=== PATIENT | male | born 1955 | race Hispanic/Latino ===

== ENCOUNTER 2025-02-18 07:31 | Day surgery (SDC) | payer OTHER, MEDICAID ==
[2025-02-17 09:54] VITALS: BP 126/59; PULSE 66; RESP 16; TEMP 97.5
[~2025-02-18] VITALS: Ht 170.2 cm; Wt 84.8 kg
[2025-02-18] VITALS (11 sets, daily range): BP systolic 126–167; BP diastolic 59–75; PULSE 16–73; RESP 15–17; TEMP 97.5–98.1
[2025-02-18] MEDS ORDERED: GABA-529 PO (08:15)
[2025-02-18] MEDS ORDERED: FERS325 PO (08:15)
[2025-02-18] MEDS ORDERED: LISI5TAB21 PO (08:15)
[2025-02-18] MEDS ORDERED: CARV3.12 PO (08:15)
[2025-02-18] MEDS ORDERED: PARO40TA72 PO (08:15)
[2025-02-18] MEDS ORDERED: SITA1TAB6 PO (08:15)
[2025-02-18] MEDS ORDERED: ATOR40TA69 PO (08:15)
[2025-02-18] MEDS ORDERED: TAMSULOSIN 0.4MG PO (08:15)
[2025-02-18] MEDS: 0.9%NACL 1000ML 1,000 ML IV ONE (08:16)
== END 2025-02-18 10:55 | disposition home or self-care (01) ==
LOC: ENDO 07:31 → DAH 07:31 → ENDO 10:55
PROVIDERS: ATTEND Internal Medicine Gastroenterology
DX: I85.00 Esophageal varices without bleeding (principal); K76.6 Portal hypertension; K31.89 Other diseases of stomach and duodenum; K31.7 Polyp of stomach and duodenum; E78.5 Hyperlipidemia, unspecified; E11.9 Type 2 diabetes mellitus without complications; F41.9 Anxiety disorder, unspecified; F32.A Depression, unspecified; Z86.73 Personal history of transient ischemic attack (TIA), and cerebral infarction without residual deficits; Z79.899 Other long term (current) drug therapy; Z98.890 Other specified postprocedural states
CPT/HCPCS: 43244; J7030; J2704; A4620; A4215; J3490